=== PATIENT | male | born 1995 | race Caucasian/White ===

== ENCOUNTER 2017-06-12 19:52 | Emergency (ER) | payer BC, OTHER ==
[~2017-06-12] VITALS: Ht 182.9 cm; Wt 65.9 kg
[~2017-06-12 19:52] MED LIST: CODEINE-GUAIFE120 ML PO
[2017-06-12] MEDS ORDERED: PREDNISONE20 M1 PO (20:45)
[2017-06-12 20:49] VITALS: BP 124/75
== END 2017-06-12 20:49 | disposition home or self-care (01) ==
LOC: ED 19:52
DX: L50.9 Urticaria, unspecified (principal)

== ENCOUNTER → 2017-07-28 | Outpatient (CLI) | payer BC, OTHER ==
[~2017-07-28] MED LIST changes: +PREDNISONE20 M1 PO
[2017-07-28 09:45] LABS: BASO # 0.1 (0.02-0.10); EOS # 0.1 (0.04-0.40); EOS % 0.8 % (0.0-4.0); HEMATOCRIT 50.2 % (36.0-47.0); HEMOGLOBIN 17.5 g/dL (12.5-16.1); LYMPH# 1.7 (1.50-4.00); MEAN CELL VOLUME 94 fl (78-95); MEAN CORPUSCULAR HEMOGLOBIN 33 pg (26-32); MEAN CORPUSCULAR HGB CONC 35 g/dL (33-37); MEAN PLATELET VOLUME 10.7 fl (7.4-10.4); MONO # 0.7 (0.20-0.80); NEU # 5.1 (1.40-6.50); PLATELET COUNT 230 K/mm3 (130-400); RED BLOOD COUNT 5.32 M/mm3 (4.20-5.60); RED CELL DISTRIBUTION WIDTH 12.6 % (11.5-14.5); WHITE BLOOD COUNT 7.6 K/mm3 (4.8-10.8)
[2017-07-28 10:00] LABS: ALBUMIN 4.3 g/dL (3.5-5.0); BUN/CREATININE RATIO 13.8 (6.0-26.0); CALCIUM 9.6 mg/dL (8.4-10.2); POTASSIUM 4.4 mmol/L (3.6-5.0); TOTAL BILIRUBIN 0.3 mg/dL (0.2-1.3); TOTAL PROTEIN 7.3 g/dL (6.3-8.2)
[2017-07-28 10:07] LABS: URINE COLOR YELLOW
[2017-07-28 10:08] LABS: URINE APPEARANCE CLEAR; URINE BILIRUBIN NEGATIVE (NEGATIVE); URINE BLOOD 250 ery/uL (NEGATIVE); URINE GLUCOSE NEGATIVE (NEGATIVE); URINE KETONE NEGATIVE (NEGATIVE); URINE LEUKOCYTE ESTERASE NEGATIVE (NEGATIVE); URINE NITRATE NEGATIVE (NEGATIVE); URINE PROTEIN(semi-quant) TRACE mg/dL (NEGATIVE); URINE UROBILINOGEN NORMAL (NORMAL)
[2017-07-28 10:09] LABS: URINE MUCUS PRESENT (NOT PRESENT)
== END ==
LOC: LAB 09:18
PROVIDERS: Family Medicine
DX: R10.31 Right lower quadrant pain (principal)

== ENCOUNTER → 2017-09-14 | Outpatient (CLI) | payer BC, OTHER | LOC: RAD 09:00 | DX: N20.0 Calculus of kidney (principal) ==

== ENCOUNTER 2019-05-16 19:59 | Emergency (ER) | payer BC ==
[2019-05-16] MEDS ORDERED: CEPHALEXIN500 M2 PO (20:34)
[2019-05-16 20:44] VITALS: BP 124/75
== END 2019-05-16 20:44 | disposition home or self-care (01) ==
LOC: ED 19:59
DX: S91.331A Puncture wound without foreign body, right foot, initial encounter (principal); W45.0XXA Nail entering through skin, initial encounter; Y92.009 Unspecified place in unspecified non-institutional (private) residence as the place of occurrence of the external cause
CPT/HCPCS: 90714

== ENCOUNTER 2021-11-15 13:25 | Emergency (ER) | payer BC ==
[~2021-11-15 13:25] MED LIST changes: +CEPHALEXIN500 M2 PO
[2021-11-15 13:39] VITALS: BP 123/79
== END 2021-11-15 15:36 | disposition home or self-care (01) ==
LOC: ED 13:25
DX: S63.502A Unspecified sprain of left wrist, initial encounter (principal); Z28.310 Unvaccinated for COVID-19; X50.1XXA Overexertion from prolonged static or awkward postures, initial encounter; Y93.64 Activity, baseball